=== PATIENT | female | born 1955 | race Caucasian/White ===

== ENCOUNTER 2018-01-07 01:32 | Emergency (ER) | payer OTHER ==
[2018-01-07] MEDS ORDERED: NS 0.9% 1000 ML* 1,000 ML IV ONE (02:33)
--- NOTE | 2018-01-07 02:34 | ED ---
Abdominal Pain/Female - HPI Summary HPI Summary: This patient is a 62 year old F presenting to [facility] with a chief complaint of RLQ since 22:00 on 01/06/18. The pain does not radiate. Patient reports nausea. Patient denies vomiting and changes in appetite. Pt has a PSHx of a rotator cuff repair. - History of Current Complaint Chief Complaint: EDAbdPain Stated Complaint: PAIN LOWER RIGHT ABD/HIP Time Seen by Provider: 01/07/18 02:22 Hx Obtained From: Patient Onset/Duration: Sudden Onset, Lasting Hours, Still Present - Since 22:00 on 10/17 Severity Initially: Severe Severity Currently: Mild Pain Intensity: 2 Pain Scale Used: 0-10 Numeric Location: Discrete At: RLQ Radiates: No Associated Signs and Symptoms: Positive: Nausea. Negative: Decreased Appetite, Vomiting Allergies/Adverse Reactions: Allergies Allergy/AdvReac Type Severity Reaction Status Date / Time No Known Allergies Allergy Verified 01/07/18 01:39 Home Medications: Home Medications Fexofenadine (NF) [Rita 180 (NF)] 180 mg PO DAILY 01/07/18 [History Confirmed 01/07/18] PMH/Surg Hx/FS Hx/Imm Hx Endocrine/Hematology History: Denies: Hx Diabetes Cardiovascular History: Denies: Hx Coronary Artery Disease - Immunization History Date of Tetanus Vaccine: unk Date of Influenza Vaccine: unk Infectious Disease History: No Infectious Disease History: Denies: Traveled Outside the [place] in Last 30 Days - Family History Known Family History: Negative: Cardiac Disease, Diabetes - Social History Occupation: Retired Lives: With Family Alcohol Use: Occasionally Substance Use Type: Reports: None Smoking Status (MU): Never Smoked Tobacco Review of Systems Negative: Fever Positive: Abdominal Pain - RLQ pain, Nausea. Negative: Vomiting, Other - Denies changes in appetite All Other Systems Reviewed And Are Negative: Yes Physical Exam - Summary Physical Exam Summary: VITAL SIGNS: Reviewed. GENERAL: Patient is a well-developed and nourished FEMALE who is lying comfortable in the stretcher. Patient is not in any acute respiratory distress. HEAD AND FACE: No signs of trauma. No ecchymosis, hematomas or skull depressions. No sinus tenderness. EYES: PERRLA, EOMI x 2, No injected conjunctiva, no nystagmus. EARS: Hearing grossly intact. Ear canals and tympanic membranes are within normal limits. MOUTH: Oropharynx within normal limits. NECK: Supple, trachea is midline, no adenopathy, no JVD, no carotid bruit, no c- spine tenderness, neck with full ROM. CHEST: Symmetric, no tenderness at palpation LUNGS: Clear to auscultation bilaterally. No wheezing or crackles. CVS: Regular rate and rhythm, S1 and S2 present, no murmurs or gallops appreciated. ABDOMEN: Soft, RLQ tenderness. No signs of distention. No rebound no guarding, and no masses palpated. Bowel sounds are normal. EXTREMITIES: FROM in all major joints, no edema, no cyanosis or clubbing. NEURO: Alert and oriented x 3. No acute neurological deficits. Speech is normal and follows commands. SKIN: Dry and warm Triage Information Reviewed: Yes Vital Signs On Initial Exam: Initial Vitals Temp Pulse Resp BP Pulse Ox 98.7 F 94 16 136/79 96 01/07/18 01:33 01/07/18 01:33 01/07/18 01:33 01/07/18 01:33 01/07/18 01:33 Vital Signs Reviewed: Yes Diagnostics - Vital Signs Vital Signs Temp Pulse Resp BP Pulse Ox 01/07/18 01:33 98.7 F 94 16 136/79 96 - Laboratory Result Diagrams: 01/07/18 02:40 01/07/18 02:40 Lab Statement: Any lab studies that have been ordered have been reviewed, and results considered in the medical decision making process. - CT Abdomen/Pelvis CT CT Interpretation Completed By: Radiologist - 04:32. The appendix is visualized and is unremarkable. There is wall thickening noted of the cecum and ascending colon noted. There is a small diverticulum noted best seen on axial image 47. Findings may represent an ascending colitis versus diverticulitis. ED Physician has reviewed this imaging report. Abdominal Pain Fem Course/Dx - Course Course Of Treatment: This patient is a 62 year old F presenting to [facility] with a chief complaint of RLQ since 22:00 on 01/06/18. The pain does not radiate. Patient reports nausea. Patient denies vomiting and changes in appetite. Pt has a PSHx of a rotator cuff repair. Abdomen/Pelvis CT showed: The appendix is visualized and is unremarkable. There is wall thickening noted of the cecum and ascending colon noted. There is a small diverticulum noted best seen on axial image 47. Findings may represent an ascending colitis versus diverticulitis. Pt is dx with colitis and will be sent home with Levoflaxin and metroNIDAZOLE. She was instructions to follow up with the [facility] in 1-2 days. 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 FOLLOW UP WITH PCP IN 1-2 DAYS. - Billing Disposition and Condition Condition: STABLE Disposition: Home - Attestation Statements Document Initiated by Scribe: Yes Documenting Scribe: Triston Hinojosa Provider For Whom Scribe is Documenting (Include Credential): George Hinson MD Scribe Attestation: Triston Novak, scribed for George Hinson MD on 01/07/18 at 0513. Scribe Documentation Reviewed: Yes Provider Attestation: The documentation as recorded by the Triston morales accurately reflects the service I personally performed and the decisions made by George loredo MD
[2018-01-07 02:57] LABS: ABS Basophils 0.1 10^3/ul (0-0.2); ABS Eosinophils 0.1 10^3/ul (0-0.6); ABS Lymphocytes 1.2 10^3/ul (1.0-4.8); ABS Monocytes 0.8 10^3/ul (0-0.8); ABS Neutrophils 7.1 10^3/ul (1.5-7.7); ABS Nucleated RBC 0 10^3/ul; Eosinophil % 0.8 % (0-6); Hematocrit 38 % (35-47); Hemoglobin 12.8 g/dl (12.0-16.0); Lymphocyte % 12.6 % (25-47); Mean Corpuscular HGB Conc 34 g/dl (31-36); Mean Corpuscular Hemoglobin 29 pg (27-31); Mean Corpuscular Volume 85 fL (80-97); Mean Platelet Volume 6.6 um3 (7.4-10.4); Nucleated Red Blood Cells % 0; Platelet Count 218 10^3/ul (150-450); Red Blood Count 4.42 10^6/ul (4.00-5.40); Red Cell Distribution Width 14 % (10.5-15); White Blood Count 9.2 10^3/ul (3.5-10.8)
[2018-01-07 03:03] LABS: INR 0.91 (0.77-1.02)
[2018-01-07 03:05] LABS: Urine Appearance Clear; Urine Blood 2+ (Negative); Urine Color Yellow; Urine Ketones Negative (Negative); Urine Protein Negative (Negative); Urine Red Blood Cell Trace(0-2/hpf) (Absent); Urine Specific Gravity 1.016 (1.010-1.030); Urine Urobilinogen Negative (Negative); Urine White Blood Cell Trace(0-5/hpf) (Absent)
[2018-01-07 03:10] LABS: EGFR Non-African American 79.3 (>60)
[2018-01-07] MEDS ORDERED: Iohexol 300* (CONTRAST) 10 ML SDV IV ONE (03:17)
--- NOTE | 2018-01-07 04:32 | RAD ---
EXAM: CT Abdomen and Pelvis With Intravenous Contrast CLINICAL HISTORY: 62 years old, female; Pain; Abdominal pain; Flank; Right lower quadrant (rlq); Additional info: Abd pain TECHNIQUE: Axial computed tomography images of the abdomen and pelvis with intravenous contrast. All CT scans at this facility use at least one of these dose optimization techniques: automated exposure control; mA and/or kV adjustment per patient size (includes targeted exams where dose is matched to clinical indication); or iterative reconstruction. Coronal and sagittal reformatted images were created and reviewed. CONTRAST: 100 mL of OMNI 300 administered intravenously. COMPARISON: No relevant prior studies available. FINDINGS: Lung bases: Unremarkable. No mass. No consolidation. ABDOMEN: Liver: Subcentimeter hypodensity noted within the liver too small to further characterize. Gallbladder and bile ducts: Unremarkable. No calcified stones. No ductal dilation. Pancreas: Unremarkable. No mass. No ductal dilation. Spleen: Unremarkable. No splenomegaly. Adrenals: Unremarkable. No mass. Kidneys and ureters: Unremarkable. No solid mass. No hydronephrosis. Stomach and bowel: See below. PELVIS: Appendix: The appendix is visualized and is unremarkable. There is wall thickening noted of the cecum and ascending colon noted. There is a small diverticulum noted best seen on axial image 47. Findings may represent an ascending colitis versus diverticulitis. Bladder: Unremarkable. No mass. Reproductive: Unremarkable as visualized. ABDOMEN and PELVIS: Intraperitoneal space: Unremarkable. No free air. No significant fluid collection. Bones/joints: No acute fracture. No dislocation. Soft tissues: Small umbilical hernia containing mesenteric fat. Vasculature: Unremarkable. No abdominal aortic aneurysm. Lymph nodes: Unremarkable. No enlarged lymph nodes. IMPRESSION: The appendix is visualized and is unremarkable. There is wall thickening noted of the cecum and ascending colon noted. There is a small diverticulum noted best seen on axial image 47. Findings may represent an ascending colitis versus diverticulitis. To contact [facility] with a general question: [facility] - [phone] For direct physician to physician contact: Physician Hotline - [phone] [facility] ([facility] Facility ID #[id number])
[2018-01-07] MEDS ORDERED: metroNIDAZOLE TAB* 250 MG PO ONE (04:40)
[2018-01-07] MEDS ORDERED: Levofloxacin TAB* 500 MG PO ONE (04:40)
[2018-01-07 05:01] VITALS: BP 137/71
== END 2018-01-07 05:00 | disposition home or self-care (01) ==
LOC: ED 01:32
DX: K52.9 Noninfective gastroenteritis and colitis, unspecified (principal)
CPT/HCPCS: 36415; 74177; 80053; 81003; 81015; 82150; 83690; 83735; 85025; 85610; 85730; 86140; 87086; 96361; 96374; 99283; A9270-GY; Q9967